=== PATIENT | male | born 1995 | race Caucasian/White ===

== ENCOUNTER 2018-10-10 19:05 | Emergency (ER) | payer BC ==
[2018-10-10] MEDS ORDERED: Cephalexin 500 MG Cap PO ONE (19:06)
--- NOTE | 2018-10-10 19:30 | EDM.PDOC ---
ED HPI GENERAL MEDICAL PROBLEM - General Chief Complaint: General Stated Complaint: finger injury Time Seen by Provider: 10/10/18 19:24 Source of Information: Reports: Patient, Family History Limitations: Reports: No Limitations - History of Present Illness INITIAL COMMENTS - FREE TEXT/NARRATIVE: in with c/o was vaccinating the cows and the needle stuck in his left hand 3rd digit in the lateral side between the PIP and DIP aspect, no numbness or tingling, no redness, minimal swelling, normal sensation, ROM, and color is pink with cap refill < 2 sec. TT is UTD, denies any other sx, UltraChoice 7, "zoetis" Onset: Today Onset Date: 10/10/18 Onset Time: 14:30 Location: Reports: Upper Extremity, Right (as above) Quality: Reports: Ache Severity: Mild Improves with: Reports: None Worsens with: Reports: None Context: Reports: Trauma (as above) Associated Symptoms: Reports: No Other Symptoms Treatments [employer]ING [employer]LYST: Reports: Other (see below) (none) - Related Data Allergies Allergy/AdvReac Type Severity Reaction Status Date / Time No Known Allergies Allergy Verified 10/10/18 19:10 Home Meds: Home Meds . [No Known Home Meds] 10/10/18 [History] Past Medical History - Past Health History Medical/Surgical History: Denies Medical/Surgical History Social & Family History - Family History Hematologic: Reports: Other (See Below) (cancer) - Tobacco Use Smoking Status *Q: Never Smoker - Alcohol Use Alcohol Use History: No - Recreational Drug Use Recreational Drug Use: No - Living Situation & Occupation Living situation: Reports: with Family ED ROS GENERAL - Review of Systems Review Of Systems: See Below Constitutional: Reports: No Symptoms Respiratory: Reports: No Symptoms Cardiovascular: Reports: No Symptoms Musculoskeletal: Reports: Joint Pain (left hand 3rd digit pip aspect with mild swelling), Joint Swelling Skin: Reports: Wound (puncture as above). Denies: Mottled, Pallor, Rash, Erythema, Change in Color Neurological: Reports: No Symptoms. Denies: Numbness, Paresthesia, Tingling Psychiatric: Reports: No Symptoms ED EXAM, GENERAL - Physical Exam Exam: See Below Exam Limited By: No Limitations General Appearance: Alert, WD/WN, No Apparent Distress Head: Atraumatic, Normocephalic Neck: Normal Inspection Respiratory/Chest: No Respiratory Distress, Lungs Clear, Normal Breath Sounds, No Accessory Muscle Use Cardiovascular: Normal Peripheral Pulses, Regular Rate, Rhythm, No Murmur Peripheral Pulses: 2+: Radial (L), Radial (R) Extremities: Normal Range of Motion, Normal Capillary Refill, Joint Swelling ( pain and mild swelling left hand 3rd digit pip aspect) Neurological: Alert, Oriented Psychiatric: Normal Affect, Normal Mood Skin Exam: Warm, Dry, Normal Color, No Rash. No: Intact (puncture wound as above), Erythema Course - Vital Signs Last Recorded V/S: Last Vital Signs Temp 36.8 C 10/10/18 19:11 Pulse 79 10/10/18 19:11 Resp 18 10/10/18 19:11 BP 91/69 10/10/18 19:11 Pulse Ox 99 10/10/18 19:11 - Orders/Labs/Meds Orders: Active Orders 24 hr Category Date Time Status Fingers Third Digit Lt F2 [CR] Stat Exams 10/10/18 19:32 Taken Meds: Medications Discontinued Medications Generic Name Dose Route Start Last Admin Trade Name Freq PRN Reason Stop Dose Admin Cephalexin 1 packet 10/10/18 20:18 Take Home: Cephalexin 500 Mg, 4 Cap Pack PO 10/10/18 20:19 ONETIME ONE Neomycin/Polymyxin/Bacitracin 1 each 10/10/18 20:17 Triple Antibiotic Oint TOP 10/10/18 20:18 ONETIME ONE - Radiology Interpretation Free Text/Narrative:: xray is neg, awaiting radiology over read Departure - Departure Time of Disposition: 20:22 Disposition: Home, Self-Care 01 Condition: Good Clinical Impression: Puncture wound of left middle finger - Discharge Information *PRESCRIPTION DRUG MONITORING PROGRAM REVIEWED*: Not Applicable Instructions: Wound Care, Adult Forms: ED Department Discharge Additional Instructions: keep wound clean and dry apply a thin coat of neosporin 3 x a day keflex 500mg 3 x a day for 5 days follow up with family doctor this week, call saturday for an appointment time return to the ED as needed ED Communication - Conversation Summary Summary Comment: 194 called [employer] and avised the of the pt and the CC and ros, she advised, that there is no toxic effects, wash the wound, and plus or minus an antibiotic. f/u PRN - My Orders Last 24 Hours: My Active Orders 10/10/18 19:32 Fingers Third Digit Lt F2 [CR] Stat - Assessment/Plan Last 24 Hours: My Active Orders 10/10/18 19:32 Fingers Third Digit Lt F2 [CR] Stat
[2018-10-10] MEDS ORDERED: Bacitracin/Neomycin/Polymyxin B Oint 0.9 GM U/D Packet TOP ONE (20:17)
[2018-10-10] MEDS ORDERED: Take Home: Cephalexin 500 MG Cap, 4 Cap Pack PO ONE (20:18)
== END 2018-10-10 20:30 | disposition home or self-care (01) ==
LOC: CC.ED 19:05
DX: S61.233A Puncture wound without foreign body of left middle finger without damage to nail, initial encounter (principal); W46.0XXA Contact with hypodermic needle, initial encounter
CPT/HCPCS: 73140-F2; 99282-25; A9270-GY